=== PATIENT | female | born 1960 | race Caucasian/White ===

== ENCOUNTER → 2017-01-28 | Outpatient (CLI) | payer OTHER ==
--- NOTE | ~2017-01-28 | 2DMMODE ---
[facility] [employer] [place] [address] 2 D/M-MODE ECHOCARDIOGRAM Name: GEOVANI PALMER Room #: REG [facility]#: [id number] Admission: 01/28/17 Attend Phys: Ge Lott Discharge: Date of : 60 Date of Service: 01/28/17 1003 Report #: [id number] THIS REPORT FOR: //name// APPROVED REPORT Study performed: 01/28/2017 08:52:48 EXAM: Comprehensive 2D, Doppler, and color-flow Echocardiogram Patient Location: Out-Patient Status: routine Other Information Study Quality: Good Indications Palpitations 2D Dimensions RVDd: 41.79 mm LVEF(%): 67.92 (>50%) IVSd: 10.01 (7-11mm) LVOT Diam: 20.02 (18-24mm) LVDd: 48.35 mm PWd: 10.18 (7-11mm) LVDs: 30.03 (25-40mm) Aortic Root: 29.55 mm IVC: 2.20 mm Holden's LVEF: 67.92 % Volumes Left Atrial Volume (Systole) Single Plane 4CH: 65.89 mL Single Plane 2CH: 61.29 mL LA ESV Index: 33.00 mL/m2 Aortic Valve AoV Peak Jose.: 1.37 m/s AO Peak Gr.: 7.49 mmHg LVOT Max P.90 mmHg LVOT Max V: 1.11 m/s TRACY Vmax: 2.55 cm2 Mitral Valve E/A Ratio: 1.1 MV Decel. Time: 258.09 ms MV E Max Jose.: 0.64 m/s MV A Jose.: 0.60 m/s MV PHT: 74.85 ms IVRT: 110.73 ms [facility] [place] [address] 2 D/M-MODE ECHOCARDIOGRAM Name: GEOVANI PALMER Room #: [facility].#: [id number] Admission: 01/28/17 Attend Phys: Ge Lott Discharge: Date of : 60 Date of Service: 01/28/17 1003 Report #: [id number] Pulmonary Valve PV Peak Jose.: 0.83 m/s PV Peak Gr.: 2.76 mmHg Pulmonary Vein P Vein S: 0.58 m/s P Vein A: 0.33 m/s P Vein D: 0.36 m/s P Vein A Dur.: 120.0 msec P Vein S/D Ratio: 1.61 Tricuspid Valve TR Peak Jose.: 2.26 m/s RAP Estimate: 5.00 mmHg TR Peak Gr.: 20.40 mmHg PA Pressure: 25.00 mmHg Left Ventricle The left ventricle is normal size. There is normal LV segmental wall motion. There is normal left ventricular wall thickness. The left ventricular systolic function is normal. The left ventricular ejection fraction is within the normal range. LVEF is 55-60%. Grade II - pseudonormal filling dynamics. Right Ventricle The right ventricle is normal size. The right ventricular systolic function is normal. Atria The left atrium size is normal. The right atrium size is normal. Aortic Valve The aortic valve is normal in structure. No aortic regurgitation is present. There is no aortic valvular stenosis. Mitral Valve The mitral valve is normal in structure. Trace mitral regurgitation. No evidence of mitral valve stenosis. Tricuspid Valve The tricuspid valve is normal in structure. There is trace tricuspid regurgitation. The right atrial pressure is estimated at 5 mmHg. There is no pulmonary hypertension with an estimated PAP of 25 mmHg. Pulmonic Valve The pulmonary valve is normal in structure. There is no pulmonic valvular regurgitation. [facility] [address] [place] [address] 2 D/M-MODE ECHOCARDIOGRAM Name: GEOVANI PALMER Room #: REG CL Ron#: [id number] Admission: 01/28/17 Attend Phys: Ge Lott Discharge: Date of : 60 Date of Service: 01/28/17 1003 Report #: [id number] Great Vessels The aortic root is normal in size. IVC is normal in size and collapses >50% with inspiration. Pericardium There is no pericardial effusion. <Conclusion> The left ventricle is normal size. There is normal left ventricular wall thickness. LVEF is 55-60%. Grade II - pseudonormal filling dynamics. The right ventricle is normal size. The left atrium size is normal. The aortic valve is normal in structure. Trace mitral regurgitation. There is trace tricuspid regurgitation. The right atrial pressure is estimated at 5 mmHg. There is no pulmonary hypertension with an estimated PAP of 25 mmHg. There is no pulmonary hypertension with an estimated PAP of 25 mmHg. The aortic root is normal in size. There is no pericardial effusion. <ELECTRONICALLY SIGNED> By: Michele Ortiz MD, FACC 01/28/17 1003 1003 1003 Michele Ortiz MD, FACC /INF
== END ==
LOC: CV 08:35
DX: R00.2 Palpitations (principal)

== ENCOUNTER → 2020-09-06 | Outpatient (CLI) | payer OTHER | LOC: CAT 13:10 | PROVIDERS: ATTEND Internal Medicine Cardiovascular Disease | DX: Z13.6 Encounter for screening for cardiovascular disorders (principal); I25.10 Atherosclerotic heart disease of native coronary artery without angina pectoris; E78.00 Pure hypercholesterolemia, unspecified ==

== ENCOUNTER → 2020-10-12 | Outpatient (CLI) | payer OTHER | LOC: SJCVCIMAG 07:46 | PROVIDERS: ATTEND Internal Medicine Cardiovascular Disease | DX: Z01.810 Encounter for preprocedural cardiovascular examination (principal); R00.2 Palpitations; R00.0 Tachycardia, unspecified; E11.9 Type 2 diabetes mellitus without complications; R93.1 Abnormal findings on diagnostic imaging of heart and coronary circulation; Z79.82 Long term (current) use of aspirin; Z79.899 Other long term (current) drug therapy ==